=== PATIENT | male | born 1930 | race Caucasian/White ===

== ENCOUNTER 2020-02-04 13:55 | Inpatient (IN) | payer MEDICARE, MEDICAID ==
[~2020-02-04] VITALS: Ht 172.7 cm; Wt 87.5 kg
[2020-02-04] MEDS ORDERED: DILTIAZEM HCL 120MG CAPSULE CD 24HR PO ONE (15:00)
[2020-02-04 15:08] LABS: BASOPHILS % 0.9 % (0.0-2.0); EOSINOPHILS % 0.4 % (0.0-5.0); HEMATOCRIT. 42.9 % (42.0-52.0); HEMOGLOBIN. 14.9 g/dL (14.0-18.0); LYMPHOCYTES % 14.5 % (20.0-50.0); MEAN CORPUSCULAR HEMOGLOBIN 30.7 pg (28.0-32.0); MEAN CORPUSCULAR VOLUME 88.5 fL (80.0-94.0); MEAN PLATELET VOLUME 10.3 fl (7.4-10.4); MONOCYTES % 7.7 % (2.0-8.0); NEUTROPHILS % 76.5 % (40.0-76.0); PLATELET 115 x1000/uL (130-400); RED BLOOD CELL COUNT 4.85 mill/uL (4.7-6.1)
[2020-02-04 15:14] LABS: CHLORIDE 108 mEq/L (98-107)
[2020-02-04] MEDS ORDERED: ASPIRIN 81MG TABLET PO ONE (16:30)
[2020-02-04] MEDS ORDERED: DILTIAZEM HCL 5MG/ML 5ML VIAL IV ONE (19:15)
[2020-02-05] VITALS (9 sets, daily range): BP systolic 110–169; BP diastolic 57–98
[2020-02-05] MEDS ORDERED: CLONIDINE 0.1MG TABLET PO PRN (05:30)
[2020-02-05] MEDS: DILTIAZEM HCL 90MG TABLET PO SCH ×3 (06:36→21:17)
[2020-02-05] MEDS ORDERED: ACETAMINOPHEN 325MG TABLET PO PRN (09:00)
[2020-02-05] MEDS ORDERED: ENOXAPARIN 40MG/0.4ML SYR SUBCUT SCH (09:00)
[2020-02-05] MEDS ORDERED: ONDANSETRON HCL 4MG/2ML INJ IV PRN (09:00)
[2020-02-05] MEDS ORDERED: ENOXAPARIN 40MG/0.4ML SYR SUBCUT NR (09:15)
[2020-02-05] MEDS: SODIUM CHLORIDE 0.9% 1,000 ML IV SCH (10:18)
[2020-02-05 10:25] LABS: BASOPHILS % 0.5 % (0.0-2.0); EOSINOPHILS % 0.1 % (0.0-5.0); HEMATOCRIT. 46.4 % (42.0-52.0); HEMOGLOBIN. 15.9 g/dL (14.0-18.0); LYMPHOCYTES % 10.1 % (20.0-50.0); MEAN CORPUSCULAR HEMOGLOBIN 30.4 pg (28.0-32.0); MEAN CORPUSCULAR VOLUME 88.7 fL (80.0-94.0); MEAN PLATELET VOLUME 10.1 fl (7.4-10.4); NEUTROPHILS % 83.3 % (40.0-76.0); PLATELET 116 x1000/uL (130-400); RED BLOOD CELL COUNT 5.23 mill/uL (4.7-6.1); RED CELL DISTRIBUTION WIDTH 14.2 % (11.6-14.6)
[2020-02-05 10:34] LABS: CHLORIDE 106 mEq/L (98-107)
[2020-02-05 10:43] LABS: CREATINE KINASE 110 IU/L (39-308)
[2020-02-05 10:48] LABS: CREATINE KINASE MB FRACTION 1.5 ng/mL (0.5-3.6)
[2020-02-05 14:44] LABS: CLARITY URINE CLEAR (CLEAR); COLOR URINE DARK YELLOW (YELLOW); KETONES URINE TRACE (NEGATIVE); LEUKOCYTE ESTERASE URINE 1+ (NEGATIVE); NITRITE URINE NEGATIVE (NEGATIVE); OCCULT BLOOD URINE NEGATIVE (NEGATIVE); PH URINE 6.5 (4.5-8.0); PROTEIN URINE 2+ (NEGATIVE); SPECIFIC GRAVITY URINE 1.024 (1.005-1.030)
[2020-02-05 15:07] LABS: *AMPHETAMINES SCREEN URINE NEGATIVE (NEGATIVE); *BARBITURATES SCREEN URINE NEGATIVE (NEGATIVE); *BENZODIAZEPINES SCREEN URINE NEGATIVE (NEGATIVE); *COCAINE SCREEN URINE NEGATIVE (NEGATIVE); METHADONE URINE SCREEN NEGATIVE (NEGATIVE)
[2020-02-05 15:08] LABS: CANNABINOID URINE SCREEN NEGATIVE (NEGATIVE); OPIATES URINE SCREEN NEGATIVE (NEGATIVE); PHENCYCLIDINE URINE SCREEN NEGATIVE (NEGATIVE)
[2020-02-05 16:01] LABS: INR 1.1; PROTHROMBIN TIME 11.4 sec (9.6-11.0)
[2020-02-05 16:04] LABS: CREATINE KINASE 124 IU/L (39-308)
[2020-02-05 16:05] LABS: CREATINE KINASE MB FRACTION 1.5 ng/mL (0.5-3.6)
[2020-02-05] MEDS ORDERED: LORAZEPAM 2MG/ML CPJ IV PRN (20:30)
[2020-02-05] MEDS ORDERED: NIFE20CA PO (21:00)
[2020-02-05] MEDS ORDERED: APIX5TAB4 PO (21:00)
[2020-02-05] MEDS ORDERED: OMEP20CA14 PO (21:00)
[2020-02-05] MEDS ORDERED: LISI-604 PO (21:00)
[2020-02-05] MEDS ORDERED: ATOR20TA65 PO (21:00)
[2020-02-05] MEDS ORDERED: BRIM.2 EACHEYE (21:04)
[2020-02-05] MEDS ORDERED: TAMS-11 PO (21:04)
[2020-02-05] MEDS: ATORVASTATIN CALCIUM 20MG TABLET PO SCH (21:17)
[2020-02-05] MEDS: ENOXAPARIN 80MG/0.8ML SYR SUBCUT SCH (21:18)
[2020-02-05] MEDS ORDERED: DILTIAZEM HCL 5MG/ML 5ML VIAL IV NR ×2 (22:34→23:53)
[2020-02-05] MEDS: HALOPERIDOL LACTATE 5MG/ML VIAL IM PRN (22:34)
[2020-02-06] VITALS (12 sets, daily range): BP systolic 101–155; BP diastolic 55–102
[2020-02-06] MEDS: SODIUM CHLORIDE 0.9% 1,000 ML IV SCH ×2 (01:06→20:18)
[2020-02-06] MEDS: HALOPERIDOL LACTATE 5MG/ML VIAL IM PRN (04:53)
[2020-02-06] MEDS: DILTIAZEM HCL 90MG TABLET PO SCH ×4 (05:32→17:59)
[2020-02-06 06:24] LABS: BASOPHILS % 0.5 % (0.0-2.0); EOSINOPHILS % 0.1 % (0.0-5.0); HEMATOCRIT. 46.3 % (42.0-52.0); LYMPHOCYTES % 10.1 % (20.0-50.0); MEAN CORPUSCULAR HEMOGLOBIN 30.5 pg (28.0-32.0); MEAN CORPUSCULAR VOLUME 88.6 fL (80.0-94.0); MEAN PLATELET VOLUME 10.1 fl (7.4-10.4); MONOCYTES % 8.9 % (2.0-8.0); NEUTROPHILS % 80.4 % (40.0-76.0); PLATELET 135 x1000/uL (130-400); RED BLOOD CELL COUNT 5.23 mill/uL (4.7-6.1); RED CELL DISTRIBUTION WIDTH 14.1 % (11.6-14.6)
[2020-02-06 06:30] LABS: INR 1.1; PROTHROMBIN TIME 11.6 sec (9.6-11.0)
[2020-02-06 07:07] LABS: T4 FREE 1.21 ng/dL (0.76-1.46)
[2020-02-06 07:08] LABS: CREATINE KINASE MB FRACTION 6.2 ng/mL (0.5-3.6)
[2020-02-06] MEDS: ENOXAPARIN 80MG/0.8ML SYR SUBCUT SCH ×2 (10:28→20:17)
[2020-02-06] MEDS ORDERED: DILT360C27 MT (13:20)
[2020-02-06] MEDS: ATORVASTATIN CALCIUM 20MG TABLET PO SCH (20:18)
[2020-02-07] VITALS (9 sets, daily range): BP systolic 124–152; BP diastolic 55–99
[2020-02-07] MEDS: DILTIAZEM HCL 90MG TABLET PO SCH ×3 (00:43→11:33)
[2020-02-07] MEDS: ENOXAPARIN 80MG/0.8ML SYR SUBCUT SCH (09:00)
== END 2020-02-07 13:44 | disposition home or self-care (01) | DRG 309 ==
LOC: ER 13:55 → EDBEDREQ 15:37 → EDBEDREQTM 15:37 → MICUSO 15:59 → EDBEDREQTM 16:04 → EDBEDREQ 16:04 → 3WST 02-05 02:33
PROVIDERS: ADMIT Internal Medicine Nephrology; ATTEND Internal Medicine Nephrology
DX: I48.20 Chronic atrial fibrillation, unspecified (principal); J98.11 Atelectasis; E78.5 Hyperlipidemia, unspecified; E87.8 Other disorders of electrolyte and fluid balance, not elsewhere classified; F17.210 Nicotine dependence, cigarettes, uncomplicated; I10 Essential (primary) hypertension; E78.00 Pure hypercholesterolemia, unspecified; Z79.01 Long term (current) use of anticoagulants; Z86.73 Personal history of transient ischemic attack (TIA), and cerebral infarction without residual deficits; Z71.6 Tobacco abuse counseling
CPT/HCPCS: 36415; 71045; 80048; 80053; 80061; 80305; 81003; 82550; 82553; 83735; 83880; 84439; 84443; 84484; 85025; 93005; 93306; 96374; 97116; 97162; 99291; J1630; J1650; J2060; J3490; J7030